=== PATIENT | female | born 1960 | race Caucasian/White ===

== ENCOUNTER → 2017-06-11 | Outpatient (CLI) | payer OTHER | LOC: BMCIMAGING 08:37 | PROVIDERS: ATTEND Family Medicine | DX: Z12.31 Encounter for screening mammogram for malignant neoplasm of breast (principal) | CPT/HCPCS: G0202 ==

== ENCOUNTER → 2018-08-12 | Outpatient (CLI) | payer OTHER | LOC: BMCIMAGING 13:09 | PROVIDERS: ATTEND Family Medicine | DX: Z12.31 Encounter for screening mammogram for malignant neoplasm of breast (principal) ==

== ENCOUNTER → 2018-11-19 | Outpatient (CLI) | payer OTHER | LOC: FIMAGING 08:18 ==